=== PATIENT | female | born 1980 | race African-American/Black ===

== ENCOUNTER 2019-05-23 07:30 | Inpatient (IN) | payer BC ==
--- NOTE | 2019-05-28 23:17 | PCM.LDHP ---
L&D History of Present Illness - General Date of Service: 05/29/19 Admit Problem/Dx: Admission Diagnosis/Problem Admission Diagnosis/Problem 05/28/19 23:07 The patient is a 39-year-old 3 para 2003 -[place] female is admitted for repeat section. Her FLY is 05/27/2019 place and her at 40- 2/7 weeks gestational age upon admission. The procedure, risks, benefits, alternatives of care discussed in detail patient. She had wanted to attempt a but is at this time wishing to proceed with repeat section. Source of Information: Patient History Limitations: Reports: No Limitations - History of Present Illness Introduction:: The patient is a 39-year-old 3 para 2002 -[place] female is admitted for repeat section. Her FLY is 05/27/2019 place and her at 40- 2/7 weeks gestational age upon admission. The procedure, risks, benefits, alternatives of care discussed in detail patient. She had wanted to attempt a but is at this time wishing to proceed with repeat section.The procedure of repeat section, its risks, benefits and alternatives care are discussed in detail patient. She appears understand and wishes to proceed. Consent is signed. POLICE RECORDS CLERK history: Patient is a 3 para 2001. First section done for failure to progress in second was an attempt at which was unsuccessful. Patient had menarche at approximately age 12. Cycles every 25-45 days. Her FLY of 05/19/2019 was determined by an early ultrasound done on 2018 at which time the patient was 18-2/7 weeks. 2 other ultrasounds done on and 03/08/2019 were consistent with the first ultrasound. Her previous deliveries include the followin. Female infant born 02/10/2012 at 43 weeks gestational age after 27 hours of labor. 6 lbs. 12 oz. done under spinal anesthesia for failed progress. This occurred in [facility]. Child's name is Libby. 2. Male born 08/01/2018 at 40 weeks gestational age after 11 hours of labor. 6 lbs. 4 oz. infant delivered by repeat section after an unsuccessful trial of labor after section for attempt. This occurred in [place]. Child's name is Estuardo Patient had wanted to do a trial of labor after section for an attempt at vaginal after section was decided since she has not gone into spontaneous labor at the time of her due date she wishes to proceed with section. Her three-hour GTT was consistent with gestational diabetes mellitus. She presently is diet controlled. She declined genetic screening. She declines flu vaccination and diphtheria pertussis tetanus vaccination. As to breast-feed. She is sickle cell negative. course: Patient was seen for first visit in our clinic at 19 weeks and 2 days. Her weight gain was from approximately 210 pounds pre 2 211 pounds end of the course of . Her fundal height growth is somewhat ahead of schedules last fundal height at 42 cm. Last cervical evaluation shows her to be 1 cm, 90% effaced, very soft, mid position, -3 station. She is rubella immune. Past medical history: 1. Gestational diabetes 2. Obesity Past surgical history: 1. 2 Family history: Mother and father are alive and well. One brother and 3 sisters are alive and well. Maternal grandmother is secondary to unknown causes. Maternal grandfather secondary to old age. Paternal grandmother from old age. Paternal grandfather from old age. No sickle cell disease, anesthesia, bleeding, blood clotting, asthma or problems noted in the family. Social history: Patient is . She lives in [place], [place]. 's name is Rashmi. Does not use any significant most alcohol, drugs or tobacco. Review of systems: In general patient has no complaints. AB is active. No contractions noted. Skin: Negative Lungs: No infectious symptoms or shortness of breath Cardiovascular: No chest pain or exercise intolerance Breasts: Changes associated with . GI: Negative : Body habitus changes associated with Musculoskeletal: Negative Neurological: Negative In general the patient is well-developed, well-nourished, pleasant female of stated age in no acute distress. On last evaluation in clinic her fundal height was noted to be 42 cm. Her weight was 211 pounds. Blood pressures 110/80 and heart rate was 127. Pre weight was 210 pounds. Height is 5 feet 0 inches. Prepregnancy body mass index was 40. Skin is warm dry without lesions. HEENT, neck and back within normal limits. Lungs are clear with good breath sounds in all lung vick. Cardiovascular exam shows regular and rhythm without murmurs. Breast exam is not done at this time. plans to breast-feed. Abdomen is gravid with fundal height of 42 cm and baby in vertex presentation. Genital exam per digital exam as described above.. Extremities and neurological exam are grossly within normal limits. H&P Review of Systems - Review of Systems: Review Of Systems: See Below L&D Exam - Exam Exam: See Below Problem List Initiated/Reviewed/Updated: Yes Assessment/Plan Comment:: 1. 40-2/7 week intrauterine with an FLY of 05/27/2019 admitted for repeat section. Procedure, risks, benefits, alternatives of car, follow -up discussed in detail with patient. She appears understand, wishes to proceed and has signed consent. 2. Group B strep screen is positive 3. Gestational diabetes controlled with diet and activity. 4. Risk factors for the include history of gestational diabetes, history of 2 for failed progress, obesity, AMA status. 5. Patient has declined genetic testing, flu vaccination and T dap vaccines. 6. Patient wishes to breast-feed. 7. Sickle cell evaluation is negative. Plan: 1. Repeat lower uterine segment transverse section through Pfannenstiel skin incision her spinal block. Procedure, risks, benefits, alternatives of care and follow-up discussed with patient. She appears to understand and wishes to proceed 2. DVT prophylaxis with SCDs 3. Infection prophylaxis with Ancef 2 g IV preop 4. Routine preoperative laboratory tests including CBC, urinalysis,, RPR 5. Support breast-feeding decision.
[2019-05-29] MEDS ORDERED: Nalbuphine 10 MG/ML Syringe IVPUSH PRN (09:01)
[2019-05-29] MEDS ORDERED: Metoclopramide 10 MG/2 ML SDV IVPUSH ONE (09:01)
[2019-05-29] MEDS ORDERED: Citric Acid/Sodium Citrate Solution 30 ML Cup PO ONE (09:01)
[2019-05-29] MEDS ORDERED: ceFAZolin 2 GM in Premix Bag 1 BAG IV ONE (09:01)
[2019-05-29] MEDS ORDERED: Sodium Chloride 0.9% 10 ML Syringe FLUSH PRN (09:01)
[2019-05-29] MEDS ORDERED: Ondansetron 4 MG/2 ML SDV IVPUSH PRN ×2 (09:01→13:19)
[2019-05-29] MEDS ORDERED: Oxytocin/Lactated Ringers 10 UNIT/1,000 ML BAG IV SCH (09:15)
[2019-05-29] MEDS: Lactated Ringers 1,000 ML IV SCH ×2 (09:30→10:36)
[2019-05-29] MEDS ORDERED: Oxytocin 10 Units/1 ML SDV ONE (11:01)
[2019-05-29] MEDS ORDERED: Ondansetron 4 MG/2 ML SDV ONE (11:01)
[2019-05-29] MEDS ORDERED: Morphine PF 10 MG/10 ML SDV ONE (11:01)
[2019-05-29] MEDS ORDERED: ceFAZolin 1 GM Vial ONE (11:01)
[2019-05-29] MEDS ORDERED: Lactated Ringers 2,000 ML ONE (11:01)
[2019-05-29] MEDS ORDERED: Ketorolac 30 MG/ML SDV ONE (11:01)
[2019-05-29] MEDS ORDERED: Bupivacaine 0.5% 30 ML SDV ONE (11:21)
--- NOTE | 2019-05-29 11:34 | PCM.PREANE ---
Preanesthetic Assessment - Anesthesia/Transfusion/Family Hx Anesthesia History: Prior Anesthesia Without Reaction Family History of Anesthesia Reaction: Yes Transfusion History: No Prior Transfusion(s) - Review of Systems General: No Symptoms Pulmonary: No Symptoms Cardiovascular: No Symptoms Gastrointestinal: No Symptoms Neurological: No Symptoms Other: Reports: None - Physical Assessment NPO Status Date: 05/28/19 NPO Status Time: 22:00 Vital Signs: Last Vital Signs Temp 36.8 C 05/29/19 09:41 Pulse 84 05/29/19 10:31 Resp 14 05/29/19 09:41 BP 112/73 05/29/19 09:41 Pulse Ox 98 05/29/19 09:41 Height: 1.52 m Weight: 95.254 kg ASA Class: 2 Mental Status: Alert & Oriented x3 Airway Class: Mallampati = 2 Dentition: Reports: Normal Dentition Thyro-Mental Finger Breadths: 3 Mouth Opening Finger Breadths: 3 ROM/Head Extension: Full Lungs: Clear to Auscultation, Normal Respiratory Effort Cardiovascular: Regular Rate, Regular Rhythm - Lab Values: Laboratory Last Values WBC 6.42 K/mm3 (3.98-10.04) 05/29/19 09:29 RBC 4.48 M/mm3 (3.98-5.22) 05/29/19 09:29 Hgb 13.1 gm/dl (11.2-15.7) D 05/29/19 09:29 Hct 40.0 % (34.1-44.9) 05/29/19 09:29 MCV 89.3 fl (79.4-94.8) 05/29/19 09:29 MCH 29.2 pg (25.6-32.2) 05/29/19 09:29 MCHC 32.8 g/dl (32.2-35.5) 05/29/19 09:29 RDW Std Deviation 46.1 fL (36.4-46.3) 05/29/19 09:29 Plt Count 241 K/mm3 (182-369) 05/29/19 09:29 MPV 10.1 fl (9.4-12.3) 05/29/19 09:29 Neut % (Auto) 59.0 % (34.0-71.1) 05/29/19 09:29 Lymph % (Auto) 29.4 % (19.3-51.7) 05/29/19 09:29 [place] % (Auto) 10.6 % (4.7-12.5) 05/29/19 09:29 Eos % (Auto) 0.5 (0.7-5.8) L 05/29/19 09:29 Baso % (Auto) 0.2 % (0.1-1.2) 05/29/19 09:29 Neut # (Auto) 3.79 K/mm3 (1.56-6.13) 05/29/19 09:29 Lymph # (Auto) 1.89 K/mm3 (1.18-3.74) 05/29/19 09:29 [place] # (Auto) 0.68 K/mm3 (0.24-0.36) H 05/29/19 09:29 Eos # (Auto) 0.03 K/mm3 (0.04-0.36) L 05/29/19 09:29 Baso # (Auto) 0.01 K/mm3 (0.01-0.08) 05/29/19 09:29 Blood Type O POSITIVE 05/29/19 09:29 Gel Antibody Screen Negative 05/29/19 09:29 - Allergies Allergies/Adverse Reactions: Allergies Allergy/AdvReac Type Severity Reaction Status Date / Time No Known Allergies Allergy Verified 05/29/19 09:01 - Acknowledgements Anesthesia Type Planned: MAC Pt an Appropriate Candidate for the Planned Anesthesia: Yes Alternatives and Risks of Anesthesia Discussed w Pt/Guardian: Yes Pt/Guardian Understands and Agrees with Anesthesia Plan: Yes PreAnesthesia Questionnaire HEENT History: Reports: None Cardiovascular History: Reports: None Respiratory History: Reports: None Gastrointestinal History: Reports: None Genitourinary History: Reports: None 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: Musculoskeletal History: Reports: None, Other (See Below) (sciatic pain) Neurological History: Reports: None Psychiatric History: Reports: None Endocrine/Metabolic History: Reports: Diabetes, Gestational Hematologic History: Reports: None - Past Surgical History Female Surgical History: Reports: Section (x2) - SUBSTANCE USE Smoking Status *Q: Never Smoker Second Hand Smoke Exposure: No Recreational Drug Use History: No - HOME MEDS Home Medications: Home Meds No122/Iron/Folic Acid [ Multi Tablet] 1 each PO DAILY 05/29/19 [History] - CURRENT (IN HOUSE) MEDS Current Meds: Current Medications Lactated Ringer's (Ringers, Lactated) 1,000 mls @ 125 mls/hr IV ASDIRECTED [facility] Last Admin: 05/29/19 10:36 Dose: 500 mls/hr Oxytocin/Lactated Ringer's (Pitocin In Lr 10 Units/1,000 Ml) 10 unit in 1,000 mls @ 100 mls/hr IV ASDIRECTED [facility] Nalbuphine HCl (Nubain) 10 mg IVPUSH Q2H PRN PRN Reason: Pain Ondansetron HCl (Zofran) 4 mg IVPUSH Q4H PRN PRN Reason: Nausea/Vomiting Sodium Chloride (Saline Flush) 10 ml FLUSH ASDIRECTED PRN PRN Reason: Keep Vein Open Discontinued Medications Bupivacaine HCl (Marcaine 0.5%) Confirm Administered Dose 30 ml .ROUTE .STK-MED ONE Stop: 05/29/19 11:22 Cefazolin Sodium (Ancef) Confirm Administered Dose 2 gm .ROUTE .STK-MED ONE Stop: 05/29/19 11:02 Citric Acid/Sodium Citrate (Bicitra Solution) 30 ml PO ONETIME ONE Stop: 05/29/19 09:02 Last Admin: 05/29/19 11:15 Dose: 30 ml Cefazolin Sodium/Dextrose 2 gm (/ Premix) 50 mls @ 100 mls/hr IV ONETIME ONE Stop: 05/29/19 09:30 Lactated Ringer's (Ringers, Lactated) Confirm Administered Dose 2,000 mls @ as directed .ROUTE .STK-MED ONE Stop: 05/29/19 11:02 Ketorolac Tromethamine (Toradol) Confirm Administered Dose 30 mg .ROUTE .STK- MED ONE Stop: 05/29/19 11:02 Metoclopramide HCl (Reglan) 10 mg IVPUSH ONETIME ONE Stop: 05/29/19 09:02 Last Admin: 05/29/19 11:15 Dose: 10 mg Morphine Sulfate (Duramorph Pf) Confirm Administered Dose 10 mg .ROUTE .STK-MED ONE Stop: 05/29/19 11:02 Ondansetron HCl (Zofran) Confirm Administered Dose 4 mg .ROUTE .STK-MED ONE Stop: 05/29/19 11:02 Oxytocin (Pitocin) Confirm Administered Dose 20 unit .ROUTE .[facility] ONE Stop: 05/29/19 11:02
[2019-05-29] MEDS ORDERED: ePHEDrine/Normal Saline 25 MG/5 ML Syringe ONE (12:49)
[2019-05-29] MEDS ORDERED: Phenylephrine/Normal Saline 100 MCG/ML 10 ML Syringe ONE (12:50)
[2019-05-29] MEDS ORDERED: Lactated Ringers 1,000 ML ONE (13:04)
[2019-05-29] MEDS ORDERED: diphenhydrAMINE 50 MG/ML SDV IVPUSH PRN ×2 (13:19→13:59)
[2019-05-29] MEDS ORDERED: fentaNYL 100 MCG/2 ML SDV IVPUSH PRN (13:19)
--- NOTE | 2019-05-29 13:26 | PCM.POSTAN ---
POST ANESTHESIA ASSESSMENT - MENTAL STATUS Mental Status: Alert, Oriented - VITAL SIGNS Vital Signs: Last Vital Signs 1312 114/59 98 12 97.2F 98% - RESPIRATORY Respiratory Status: Respiratory Rate WNL, Airway Patent, O2 Saturation Stable - CARDIOVASCULAR CV Status: Pulse Rate WNL, Blood Pressure Stable - GASTROINTESTINAL GI Status: No Symptoms - PAIN Pain Score: 0 - POST OP HYDRATION Hydration Status: Adequate & Stable
--- NOTE | 2019-05-29 13:28 | PCM.OPNOTE ---
- General Post-Op/Procedure Note Date of Surgery/Procedure: 05/29/19 Operative Procedure(s): Repeat lower uterine segment transverse section through fast skin incision under spinal block. Findings: Anterior abdominal wall was moderately scarred. Uterus tubes ovaries consistent with normal term . Baby in a vertex the posterior position. Nuchal cord 1. Amniotic fluid is clear. Lower uterine segment was at least 5 mm thick. Pre Op Diagnosis: 1. 40-2/7 week intrauterine , history of previous section 2 with desire for repeat section Post-Op Diagnosis: Same with delivery of viable, female infant with Apgars of 7 and 8 at 1244 hrs. on 05/29/2019. Anesthesia Technique: Spinal Other Anesthesia Type: Marcaine 0.5%20 mL Primary Surgeon: Polo Corbin Secondary Surgeon: Josue Newman Anesthesia Provider: Chelo Alcala Reason Administrator Pesticide Was Necessary: Retraction, assistance, patient safety, quantity. Fluid Replacement, Intraop: 2,500 Output, Urine Amount: 100 Drain/Tube Comments:: Indwelling bladder catheter Complications: None Condition: Good Free Text/Narrative:: Surgery duration: 28 minutes Procedure: The patient is appropriately consented. Patient was transferred to the room and placed in a sitting position. Spinal anesthesia was administered. After confirmation of adequate anesthesia patient was placed in a supine position with a wedge under her right side to facilitate left lateral positioning. The patient was prepped and draped in usual fashion after Pelayo catheter was placed . The anesthetic was checked and found to be adequate. 20 mL of Marcaine 0.5% was injected locally in the Pfannenstiel incision site. The Pfannenstiel skin incision was then made and carried down through skin, subcutaneous and fascial layers. The fascia was then undermined superiorly and inferiorly to allow for adequate operating room. The recti muscles midline and preperitoneal fat was bluntly dissected. Peritoneal cavity was entered longitudinally. Moderate scarring was noted from previous 2 C-sections. The vesicouterine peritoneum was then incised transversely and bladder flap was developed. Myometrium was incised transversely to the level of the amniotic sac. This incision was extended bilaterally in a blunt fashion. The amniotic sac was then ruptured resulting in clear amniotic fluid. A hand is placed in the low uterine segment and the baby's head was brought forth through the incision. The baby was completely delivered using fundal pressure in a routine fashion. The nose and mouth were bulb suctioned. Baby's cord was clamped x2 cut and baby was handed off to attending quality control chemist Dr Ibarra. Placenta was expressed after cord blood was obtained. Uterus was then exteriorized to allow for easier closure. The cervix was assessed and found to be dilated adequately to allow egress of blood. The uterus was closed in 2 layers. The first layer a running locked suture of 0 Monocryl, the second layer a running locked vertical mattress suture of 0 Monocryl. [id number] suture was placed at mid incision to control 1 bleeder. Hemostasis confirmed at this time. Sponge instrument needle counts are correct. The uterus was returned to the abdominal cavity and lateral gutters were cleared of blood. Once again sponge needle counts are correct. The anterior abdominal wall was closed with a #1 PDS suture from angle to angle. The subcutaneous area was found to be free of any bleeders. interrupted sutures of 3-0 Monocryl were used to reapproximate the subcutaneous layer.Skin was closed with a running subcuticular stitch of 3-0 Monocryl in a vertical mattress suture fashion using a Fabrizio needle. Prineo mesh /glue was then applied to further approximate the incision. It should be noted that patient received 2 g of Ancef preoperatively for infection prophylaxis and had Pitocin infused after delivery of the placenta to facilitate uterine contraction. She also had sequential compression stockings in place for DVT prophylaxis. Patient was discharged from the operating room in satisfactory condition.
[2019-05-29] MEDS ORDERED: Simethicone 80 MG Tab.Chew PO ONE (13:31)
[2019-05-29] MEDS ORDERED: Ondansetron 4 MG/2 ML SDV IV PRN (13:59)
[2019-05-29] MEDS ORDERED: Acetaminophen/oxyCODONE 325-5 MG Tab PO PRN (13:59)
[2019-05-29] MEDS ORDERED: Naloxone 0.4 MG/ML SDV IVPUSH PRN (13:59)
[2019-05-29] MEDS ORDERED: ePHEDrine 50 MG/ML SDV IVPUSH PRN (13:59)
[2019-05-29] MEDS ORDERED: Dextrose 5%-Lactated Ringers 1,000 ML IV SCH (13:59)
[2019-05-29] MEDS: Docusate Sodium 100 MG Cap PO SCH (15:11)
[2019-05-29] MEDS: Ibuprofen 800 MG Tab PO SCH (18:57)
[2019-05-30] MEDS ORDERED: Docusate Sodium 100 MG Cap ONE (04:06)
[2019-05-30] MEDS: Ibuprofen 800 MG Tab PO SCH ×3 (05:38→18:53)
[2019-05-30] MEDS: Docusate Sodium 100 MG Cap PO SCH ×2 (05:38→14:19)
--- NOTE | 2019-05-30 06:36 | PCM48HPAN ---
Post Anesthesia Note - EVALUATION WITHIN 48HRS OF ANESTHETIC Vital Signs in Normal Range: Yes Patient Participated in Evaluation: Yes Respiratory Function Stable: Yes Airway Patent: Yes Cardiovascular Function Stable: Yes Hydration Status Stable: Yes Pain Control Satisfactory: Yes Nausea and Vomiting Control Satisfactory: Yes Mental Status Recovered: Yes Vital Signs: Last Vital Signs Temp 36.2 C 05/29/19 13:57 Pulse 105 H 05/30/19 06:00 Resp 16 05/30/19 06:00 BP 107/65 05/29/19 23:49 Pulse Ox 100 05/30/19 06:00
[2019-05-30] MEDS: Prenatal Multivitamin with Calcium/Folic Acid/Iron Tab PO SCH (10:20)
--- NOTE | 2019-05-30 13:35 | PCM.SN ---
- Free Text/Narrative Note: note: Patient is doing well in the period. Minimal lochia, voiding well, ambulated without problems. Nursing without concerns. Patient is afebrile, vital signs are stable Abdomen is flat, soft, uterus is below the umbilicus and is firm and nontender. Incision appears intact. Prineo Mesh is intact. Legs are nontender. Assessment: recovery going well. Plan: Routine care. Patient be discharged home within the next 24-48 hours.
[2019-05-31] MEDS: Ibuprofen 800 MG Tab PO SCH ×2 (03:02→10:45)
[2019-05-31] MEDS: Docusate Sodium 100 MG Cap PO SCH (03:02)
--- NOTE | 2019-05-31 07:45 | PCM.DCSUM1 ---
Discharge Summary - Hospital Course HPI Initial Comments: Admitted for RCS. Uncomplicated course. Diagnosis: Stroke: No - Discharge Data Discharge Date: 05/31/19 Discharge Disposition: Home, Self-Care 01 Condition: Good - Referral to Home Health Primary Care Physician: Polo Corbin MD - Patient Summary/Data Operative Procedure(s) Performed: Repeat lower uterine segment transverse section under spinal block. - Patient Instructions Diet: Usual Diet as Tolerated Activity: No Strenuous Activities Driving: Do Not Drive Showering/Bathing: May Shower Notify Provider of: Fever, Increased Pain, Swelling and Redness, Drainage, Nausea and/or Vomiting - Discharge Plan *PRESCRIPTION DRUG MONITORING PROGRAM REVIEWED*: No *COPY OF PRESCRIPTION DRUG MONITORING REPORT IN PATIENT [place]: No Home Medications: Home Meds No122/Iron/Folic Acid [ Multi Tablet] 1 each PO DAILY 05/29/19 [History] Referrals: Polo Corbin MD [Primary Care Provider] - (1-2 weeks) - Discharge Summary/Plan Comment DC Time >30 min.: No - Patient Data Vitals - Most Recent: Last Vital Signs Temp 36.6 C 05/31/19 03:00 Pulse 93 05/31/19 03:00 Resp 15 05/31/19 03:00 BP 95/53 L 05/31/19 03:00 Pulse Ox 100 05/31/19 03:00 Weight - Most Recent: 95.254 kg I&O - Last 24 hours: Intake & Output 05/30/19 05/31/19 05/31/19 22:59 06:59 14:59 Intake Total 440 Balance 440 Med Orders - Current: Current Medications Diphenhydramine HCl (Benadryl) 25 mg IVPUSH Q6H PRN PRN Reason: Itching or Nausea Docusate Sodium (Colace) 100 mg PO Q12H [facility] Last Admin: 05/31/19 03:02 Dose: 100 mg Ephedrine Sulfate (Ephedrine Sulfate) 5 mg IVPUSH SEECOMMENT PRN PRN Reason: Other Ibuprofen (Motrin) 800 mg PO Q8H [facility] Last Admin: 05/31/19 03:02 Dose: 800 mg Naloxone HCl (Narcan) 0.1 mg IVPUSH SEECOMMENT PRN PRN Reason: Respiratory Depression Ondansetron HCl (Zofran) 4 mg IV Q4H PRN PRN Reason: Nausea/Vomiting Oxycodone/Acetaminophen (Percocet 325-5 Mg) 2 tab PO Q4H PRN PRN Reason: Pain (severe 7-10) Prenat Multivit/Roaster Operator/Iron/Folic Ac ( Plus Iron) 1 each PO DAILY [facility] Last Admin: 05/30/19 10:20 Dose: Not Given Discontinued Medications Bupivacaine HCl (Marcaine 0.5%) Confirm Administered Dose 30 ml .ROUTE .STK-MED ONE Stop: 05/29/19 11:22 Last Admin: 05/29/19 12:38 Dose: 20 ml Cefazolin Sodium (Ancef) Confirm Administered Dose 2 gm .ROUTE .STK-MED ONE Stop: 05/29/19 11:02 Citric Acid/Sodium Citrate (Bicitra Solution) 30 ml PO ONETIME ONE Stop: 05/29/19 09:02 Last Admin: 05/29/19 11:15 Dose: 30 ml Diphenhydramine HCl (Benadryl) 25 mg IVPUSH Q6H PRN PRN Reason: Pruritis Stop: 05/29/19 16:00 Docusate Sodium (Colace) Confirm Administered Dose 100 mg .ROUTE .STK-MED ONE Stop: 05/30/19 04:07 Last Admin: 05/30/19 05:39 Dose: Not Given Ephedrine Sulfate (Ephedrine In Ns) Confirm Administered Dose 25 mg .ROUTE .STK- MED ONE Stop: 05/29/19 12:50 Fentanyl (Sublimaze) 50 mcg IVPUSH Q5M PRN PRN Reason: Pain Stop: 05/29/19 16:00 Cefazolin Sodium/Dextrose 2 gm (/ Premix) 50 mls @ 100 mls/hr IV ONETIME ONE Stop: 05/29/19 09:30 Last Admin: 05/29/19 15:12 Dose: Not Given Lactated Ringer's (Ringers, Lactated) 1,000 mls @ 125 mls/hr IV ASDIRECTED [facility] Last Admin: 05/29/19 10:36 Dose: 500 mls/hr Oxytocin/Lactated Ringer's (Pitocin In Lr 10 Units/1,000 Ml) 10 unit in 1,000 mls @ 100 mls/hr IV ASDIRECTED [facility] Lactated Ringer's (Ringers, Lactated) Confirm Administered Dose 2,000 mls @ as directed .ROUTE .STK-MED ONE Stop: 05/29/19 11:02 Lactated Ringer's (Ringers, Lactated) Confirm Administered Dose 1,000 mls @ as directed .ROUTE .STK-MED ONE Stop: 05/29/19 13:05 Dextrose/Lactated Ringer's (Dextrose 5%-Lactated Ringers) 1,000 mls @ 125 mls/ hr IV ASDIRECTED [facility] Stop: 05/29/19 21:58 Ketorolac Tromethamine (Toradol) Confirm Administered Dose 30 mg .ROUTE .STK- MED ONE Stop: 05/29/19 11:02 Metoclopramide HCl (Reglan) 10 mg IVPUSH ONETIME ONE Stop: 05/29/19 09:02 Last Admin: 05/29/19 11:15 Dose: 10 mg Morphine Sulfate (Duramorph Pf) Confirm Administered Dose 10 mg .ROUTE .STK-MED ONE Stop: 05/29/19 11:02 Nalbuphine HCl (Nubain) 10 mg IVPUSH Q2H PRN PRN Reason: Pain Ondansetron HCl (Zofran) 4 mg IVPUSH Q4H PRN PRN Reason: Nausea/Vomiting Ondansetron HCl (Zofran) Confirm Administered Dose 4 mg .ROUTE .STK-MED ONE Stop: 05/29/19 11:02 Ondansetron HCl (Zofran) 4 mg IVPUSH ONETIME PRN PRN Reason: Nausea/Vomiting Stop: 05/29/19 16:00 Oxytocin (Pitocin) Confirm Administered Dose 20 unit .ROUTE .STK-MED ONE Stop: 05/29/19 11:02 Phenylephrine HCl (Phenylephrine In Ns 100 Mcg/Ml) Confirm Administered Dose 1 mg .ROUTE .STK-MED ONE Stop: 05/29/19 12:51 Simethicone (Simethicone) 160 mg PO ONETIME ONE Stop: 05/29/19 13:32 Last Admin: 05/29/19 13:39 Dose: 160 mg Sodium Chloride (Saline Flush) 10 ml FLUSH ASDIRECTED PRN PRN Reason: Keep Vein Open
[2019-05-31] MEDS ORDERED: Acetaminophen 325 MG Tab PO PRN (10:08)
[2019-05-31] MEDS: Prenatal Multivitamin with Calcium/Folic Acid/Iron Tab PO SCH (10:17)
== END 2019-05-31 11:30 | disposition home or self-care (01) | DRG 540 ==
LOC: JD.OB 05-29 08:15
PROVIDERS: ADMIT Obstetrics & Gynecology; ATTEND Obstetrics & Gynecology
PROC: 10D00Z1 Extraction of Products of Conception, Low, Open Approach (ICD-10-PCS; principal; 2019-05-29)
DX: O34.211 Maternal care for low transverse scar from previous cesarean delivery (principal); O24.420 Gestational diabetes mellitus in childbirth, diet controlled; Z37.0 Single live birth; Z3A.40 40 weeks gestation of pregnancy
CPT/HCPCS: 01961; 36415; 59025; 85025; 86592; 86850; 86900; 86901; 94762; A9270-GY; J0690; J1885; J2270; J2370; J2405; J2590; J2765; J3490; J7050; J7120